=== PATIENT | female | born 1965 ===

== ENCOUNTER 2018-05-12 00:08 | Emergency (ER) | payer SELFPAY ==
[2018-05-12 00:31] VITALS: RESP 16; TEMP 98.2
--- NOTE | 2018-05-12 00:50 | C.PDOC ---
History Of Present Illness 52 year old female presents to the ED c/o itchiness. Patient reports getting radiation iodine for her thyroid. Patient able to speak in complete sentences. Patient denies fever, chills, nausea, vomit, SOB, facial swelling. Time Seen by Provider: 05/12/18 00:50 Chief Complaint (Nursing): Abnormal Skin Integrity History Per: Patient History/Exam Limitations: no limitations Onset/Duration Of Symptoms: Days Current Symptoms Are (Timing): Still Present Quality Of Symptoms: Itching Recent travel outside of the [place]: No Additional History Per: Patient Past Medical History Reviewed: Historical Data, Nursing Documentation, Vital Signs Vital Signs: Last Vital Signs Temp 98.2 F 05/12/18 00:20 Pulse 62 05/12/18 00:20 Resp 16 05/12/18 00:20 BP 109/64 05/12/18 00:20 Pulse Ox 100 05/12/18 00:20 - Medical History PMH: No Chronic Diseases Surgical History: Cholecystectomy (2 mos. ago) Family History: States: Unknown Family Hx - Social History Hx Alcohol Use: Yes Hx Substance Use: No - Immunization History Hx Tetanus Toxoid Vaccination: No Hx Influenza Vaccination: No Hx Pneumococcal Vaccination: No Review Of Systems Constitutional: Negative for: Fever, Chills ENT: Negative for: Mouth Swelling, Throat Swelling Respiratory: Negative for: Cough, Shortness of Breath Gastrointestinal: Negative for: Nausea, Vomiting Skin: Positive for: Rash Neurological: Negative for: Weakness, Numbness Physical Exam - Physical Exam Appears: Non-toxic, No Acute Distress Skin: Warm, Dry, Rash (few urticarial ) Head: Normacephalic Eye(s): bilateral: Normal Inspection Oral Mucosa: Moist Tongue: No Swelling Lips: No Swelling Throat: No Erythema, No Exudate Neck: Supple Chest: Symmetrical Cardiovascular: Rhythm Regular Respiratory: No Rales, No Rhonchi, No Wheezing Gastrointestinal/Abdominal: Soft, No Tenderness, No Guarding, No Rebound Extremity: Bilateral: Atraumatic, Normal Color And Temperature, Normal ROM Neurological/Psych: Oriented x3, Normal Speech, Normal Cognition Gait: Steady ED Course And Treatment O2 Sat by Pulse Oximetry: 100 (ON RA) Pulse Ox Interpretation: Normal Progress Note: Plan: - Benadryl 25 mg PO. - Pepcid 20 mg PO. - Prednisone 60 mg PO Reevaluation Time: 02:25 Reassessment Condition: Improved Disposition Counseled Patient/Family Regarding: Studies Performed, Diagnosis, Need For Followup, Rx Given - Disposition Referrals: Sandra Palmer APN [Advanced Practice Nurse] - Disposition: HOME/ ROUTINE Disposition Time: 00:50 Condition: FAIR Additional Instructions: Please reteurn if symptoms recur. May also use benadryl, pepcid and claritin Prescriptions: Prednisone [Deltasone] 20 mg PO DAILY #5 tablet Instructions: Skin Rash (DC) Forms: [employer] (Korean) - Clinical Impression Clinical Impression: Allergic reaction - Scribe Statement The provider has reviewed the documentation as recorded by the Scribe Ken Mcarthur All medical record entries made by the Scribe were at my direction and personally dictated by me. I have reviewed the chart and agree that the record accurately reflects my personal performance of the history, physical exam, medical decision making, and the department course for this patient. I have also personally directed, reviewed, and agree with the discharge instructions and disposition.
[2018-05-12 04:07] VITALS: BP 104/69; PULSE 66; O2SAT 98
== END 2018-05-12 03:55 | disposition home or self-care (01) ==
LOC: C.ER 00:08
DX: T78.40XA Allergy, unspecified, initial encounter (principal)

== ENCOUNTER 2018-08-20 11:57 | Emergency (ER) | payer OTHER ==
[2018-08-20 12:06] VITALS: BMI 25.0
[2018-08-20 12:14] VITALS: BP 109/70; PULSE 75; RESP 17; TEMP 98.2; O2SAT 99
[2018-08-20 12:45] LABS: HCG,QUALITATIVE URINE NEGATIVE (NEGATIVE)
[2018-08-20 12:48] LABS: SQUAMOUS EPITHIAL 4 /hpf (0-5); URINE BACTERIA FEW (<OCC); URINE BILIRUBIN NEGATIVE (NEGATIVE); URINE BLOOD NEGATIVE (NEGATIVE); URINE CLARITY Hazy (Clear); URINE COLOR Yellow (YELLOW); URINE GLUCOSE (UA) NORMAL (Normal); URINE LEUKOCYTE ESTERASE NEG Leu/uL (Negative); URINE PROTEIN NEGATIVE (NEGATIVE); URINE UROBILINOGEN NORMAL mg/dL (0.2-1.0)
[2018-08-20 12:50] LABS: BASO # 0.1 K/uL (0.0-0.2); BASO % 0.8 % (0.0-2.0); EOS # 0.1 K/uL (0.0-0.7); HEMOGLOBIN 13.8 g/dL (11.0-16.0); LYMPH # 1.8 K/uL (1.0-4.3); LYMPH % 18.6 % (20.0-40.0); MEAN CELL VOLUME 92.3 fL (81.0-99.0); MEAN CORPUSCULAR HEMOGLOBIN 31.1 pg (27.0-31.0); MEAN CORPUSCULAR HGB CONC 33.7 g/dL (33.0-37.0); MEAN PLATELET VOLUME 7.1 fL (7.2-11.7); MONO # 0.5 K/uL (0.0-0.8); MONO % 5.5 % (0.0-10.0); NEUT # 7.1 K/uL (1.8-7.0); NEUT % 74.1 % (50.0-75.0); RBC 4.43 Mil/uL (3.80-5.20); RED CELL DISTRIBUTION WIDTH 12.3 % (11.5-14.5); WHITE BLOOD COUNT 9.6 K/uL (4.8-10.8)
[2018-08-20] MEDS ORDERED: Sodium Chloride 0.9% 1,000 ML IV ONE (12:50)
--- NOTE | 2018-08-20 12:55 | C.PDOC ---
History Of Present Illness 52 y/o female comes in to ED complaining of left-sided abdominal pain since 2 days ago. Patient states pain is 8/10 and is on and off. States her is sick at home with similar symptoms. Patient also reports of some diarrhea but no vomiting, fever, chills, chest pain, SOB, or other symptoms. Patient has not seen her doctor yet. LMP was 5 years ago. Time Seen by Provider: 08/20/18 12:17 Chief Complaint (Nursing): Abdominal Pain History Per: Patient History/Exam Limitations: no limitations Onset/Duration Of Symptoms: Days Current Symptoms Are (Timing): Still Present Past Medical History Reviewed: Historical Data, Nursing Documentation, Vital Signs Vital Signs: Last Vital Signs Temp 98.2 F 08/20/18 12:07 Pulse 75 08/20/18 12:07 Resp 17 08/20/18 12:07 BP 109/70 08/20/18 12:07 Pulse Ox 99 08/20/18 12:07 - Medical History PMH: Hypothyroidism Surgical History: Cholecystectomy (2017) Family History: States: No Known Family Hx - Social History Hx Alcohol Use: No Hx Substance Use: No - Immunization History Hx Tetanus Toxoid Vaccination: No Hx Influenza Vaccination: Yes (2017) Hx Pneumococcal Vaccination: No Review Of Systems Except As Marked, All Systems Reviewed And Found Negative. Constitutional: Negative for: Fever, Chills Cardiovascular: Negative for: Chest Pain Respiratory: Negative for: Shortness of Breath Gastrointestinal: Positive for: Abdominal Pain (left-sided), Diarrhea. Negative for: Nausea, Vomiting Genitourinary: Negative for: Dysuria, Hematuria Skin: Negative for: Rash Physical Exam - Physical Exam Appears: Non-toxic, No Acute Distress Skin: Warm, Dry Head: Atraumatic, Normacephalic Eye(s): bilateral: Normal Inspection Oral Mucosa: Moist Neck: Supple Cardiovascular: Rhythm Regular, No Murmur Respiratory: Normal Breath Sounds, No Rales, No Rhonchi, No Wheezing Gastrointestinal/Abdominal: Tenderness (suprapubic tenderness, more on LLQ), No Guarding, No Rebound Back: No CVA Tenderness Extremity: Bilateral: Atraumatic, Normal Color And Temperature, Normal ROM ED Course And Treatment - Laboratory Results Result Diagrams: 08/20/18 12:45 08/20/18 12:45 Lab Results: Urine Color Yellow (YELLOW) 08/20/18 12:30 Urine Clarity Hazy (Clear) 08/20/18 12:30 Urine pH 6.0 (5.0-8.0) 08/20/18 12:30 Ur Specific Warren 1.014 (1.003-1.030) 08/20/18 12:30 Urine Protein Negative mg/dL (NEGATIVE) 08/20/18 12:30 Urine Glucose (UA) Normal mg/dL (Normal) 08/20/18 12:30 Urine Ketones Negative mg/dL (NEGATIVE) 08/20/18 12:30 Urine Blood Negative (NEGATIVE) 08/20/18 12:30 Urine Nitrate Negative (NEGATIVE) 08/20/18 12:30 Urine Bilirubin Negative (NEGATIVE) 08/20/18 12:30 Urine Urobilinogen Normal mg/dL (0.2-1.0) 08/20/18 12:30 Ur Leukocyte Esterase Neg Maggie/uL (Negative) 08/20/18 12:30 Urine WBC (Auto) < 1 /hpf (0-5) 08/20/18 12:30 Urine RBC (Auto) 1 /hpf (0-3) 08/20/18 12:30 Ur Squamous Epith Cells 4 /hpf (0-5) 08/20/18 12:30 Urine Bacteria Few (<OCC) H 08/20/18 12:30 Urine HCG, Qual Negative (NEGATIVE) 08/20/18 12:30 Urine HCG, Qual Negative (NEGATIVE) 08/20/18 12:30 O2 Sat by Pulse Oximetry: 99 (RA) Pulse Ox Interpretation: Normal Medical Decision Making Medical Decision Making: Plan: --Bloodwork --IV fluids 1L --UA Disposition Counseled Patient/Family Regarding: Studies Performed, Diagnosis, Need For Followup - Disposition Referrals: [facility] [Outside] [facility] [Outside] Disposition: HOME/ ROUTINE Disposition Time: 13:45 Condition: STABLE Prescriptions: Naproxen [Naprosyn] 500 mg PO BID PRN #30 tablet PRN Reason: Pain, Moderate (4-7) Sulfamethoxazole/Trimethoprim [Bactrim DS 800 mg-160 mg] 1 tab PO BID #14 tab Instructions: Urinary Tract Infection, Adult (DC), Acute Abdomen (Belly Pain), Adult (DC) Forms: Gen Discharge Inst Moroccan, [employer] (Moroccan) Print Language: CANADIAN - POA Present On Arrival: None - Clinical Impression Clinical Impression: UTI (urinary tract infection), Abdominal pain - Scribe Statement The provider has reviewed the documentation as recorded by the Albertoibbruno Spears Provider Attestation: All medical record entries made by the Albertoibe were at my direction and personally dictated by me. I have reviewed the chart and agree that the record accurately reflects my personal performance of the history, physical exam, medical decision making, and the department course for this patient. I have also personally directed, reviewed, and agree with the discharge instructions and disposition.
[2018-08-20] MEDS ORDERED: Sodium Chloride 0.9% 1,000 ML ONE (12:56)
[2018-08-20 13:01] LABS: BLOOD UREA NITROGEN 16 mg/dL (7-17); CALCIUM 9.1 mg/dl (8.6-10.4); GFR NON-AFRICAN AMERICAN > 60
[2018-08-20] MEDS ORDERED: Naproxen 550 mg Tab PO STA (13:48)
[2018-08-20] MEDS ORDERED: Naproxen 550 mg Tab PO ONE (14:01)
== END 2018-08-20 14:11 | disposition home or self-care (01) ==
LOC: C.ER 11:57
DX: N39.0 Urinary tract infection, site not specified (principal); R10.32 Left lower quadrant pain
CPT/HCPCS: 80048; 81001; 84703; 85025; 96360; 99284; J7030

== ENCOUNTER 2018-09-02 10:04 | Emergency (ER) | payer OTHER ==
[2018-09-02 10:05] VITALS: BMI 25.0
[2018-09-02 10:16] VITALS: PULSE 75; O2SAT 98
[2018-09-02] MEDS ORDERED: Sodium Chloride 0.9% 1,000 ML IV ONE (10:42)
--- NOTE | 2018-09-02 10:59 | C.PDOC ---
History Of Present Illness 52 y/o female presents to the ED complaining of abdominal pain. Associated with diarrhea for the past 2 months. Patient reports having around 5 episodes of watery non-bloody diarrhea per day. She was seen here on 08/20 for similar com plaint, and discharged home with antibiotics for a UTI. Patient denies any dysuria, hematuria, urinary frequency, fevers, chills, nausea, or vomiting. States she needs a CT scan. Time Seen by Provider: 09/02/18 10:28 Chief Complaint (Nursing): Abdominal Pain History Per: Patient History/Exam Limitations: no limitations Onset/Duration Of Symptoms: Days Current Symptoms Are (Timing): Still Present Quality Of Discomfort: "Pain" Associated Symptoms: Diarrhea Alleviating Factors: None Last Bowel Movement: Today Past Medical History Reviewed: Historical Data, Nursing Documentation, Vital Signs Vital Signs: Last Vital Signs Temp 98.2 F 09/02/18 10:15 Pulse 75 09/02/18 10:15 Resp 18 09/02/18 10:15 BP 101/64 09/02/18 10:15 Pulse Ox 98 09/02/18 10:15 - Medical History PMH: Hypothyroidism Surgical History: Cholecystectomy (2017) Family History: States: No Known Family Hx - Social History Hx Alcohol Use: No Hx Substance Use: No - Immunization History Hx Tetanus Toxoid Vaccination: No Hx Influenza Vaccination: Yes (2017) Hx Pneumococcal Vaccination: No Review Of Systems Constitutional: Negative for: Fever, Chills Cardiovascular: Negative for: Light Headedness Respiratory: Negative for: Shortness of Breath Gastrointestinal: Positive for: Abdominal Pain, Diarrhea. Negative for: Nausea, Vomiting, Melena, Hematochezia Genitourinary: Negative for: Dysuria, Frequency, Incontinence Neurological: Negative for: Weakness, Dizziness Physical Exam - Physical Exam Appears: Non-toxic, No Acute Distress Skin: Warm, Dry Head: Atraumatic, Normacephalic Eye(s): bilateral: Normal Inspection, PERRL, EOMI Oral Mucosa: Moist Neck: Normal ROM Chest: Symmetrical Cardiovascular: Rhythm Regular, No Murmur Respiratory: Normal Breath Sounds, No Accessory Muscle Use Gastrointestinal/Abdominal: Soft, No Tenderness, No Distention, No Guarding, No Rebound Back: Normal Inspection, No CVA Tenderness Extremity: Bilateral: Atraumatic, Normal Color And Temperature, Normal ROM Neurological/Psych: Oriented x3, Normal Speech ED Course And Treatment - Laboratory Results Result Diagrams: 09/02/18 11:43 09/02/18 11:43 Lab Interpretation: No Acute Changes O2 Sat by Pulse Oximetry: 98 (RA) Pulse Ox Interpretation: Normal - CT Scan/US No standard instances Other Rad Studies (CT/US): Read By Radiologist, Radiology Report Reviewed CT/US Interpretation: HISTORY: Pain. COMPARISON: None available. TECHNIQUE: Contiguous axial images of the abdomen and pelvis. No oral or IV contrast administered. Coronal and Sagittal reformats generated and reviewed. Radiation dose: Total exam DLP = 368.67 mGy-cm. This CT exam was performed using one or more of the following dose reduction techniques: Automated exposure control, adjustment of the mA and/or kV according to patient size, and/or use of iterative reconstruction technique. FINDINGS: There is limited evaluation of the solid organs without the administration of IV contrast. LOWER THORAX: No visible consolidation, pleural effusion, or pneumothorax. LIVER: Unremarkable unenhanced appearance. GALLBLADDER AND BILE DUCTS: Cholecystectomy. PANCREAS: Unremarkable unenhanced appearance. SPLEEN: Unremarkable unenhanced appearance. ADRENALS: Unremarkable unenhanced appearance. KIDNEYS AND URETERS: No hydronephrosis or obstructing renal calculus. BLADDER: The urinary bladder appears unremarkable. REPRODUCTIVE: Uterus is present. APPENDIX: The appendix is not identified. No secondary signs of acute appendicitis. BOWEL: The stomach is nondistended. Lack of oral contrast limits evaluation for bowel pathology. The bowel loops appear within normal limits of caliber without evidence of intestinal obstruction. PERITONEUM: No significant free fluid. No definite free air. LYMPH NODES: No bulky lymphadenopathy identified. VASCULATURE: No significant atherosclerotic calcifications identified. No aortic aneurysm. BONES: Mild degenerative changes. OTHER FINDINGS: None. IMPRESSION: No acute findings identified. See above. Progress Note: Treated with IVF NSS and bentyl IM. On re-evaluation abdomen soft on no distress Reassessment Condition: Improved Medical Decision Making Medical Decision Making: Impression: Abdominal Pain, Diarrhea Plan: --Blood work --Urinalysis --Stool analysis --CT abdomen/pelvis --NS IV fluids --20 mg IM Bentyl --Reassess after treatment Disposition Counseled Patient/Family Regarding: Studies Performed, Diagnosis, Need For Followup - Disposition Referrals: [facility] [Outside] [facility] [Outside] Disposition: HOME/ ROUTINE Disposition Time: 13:00 Condition: IMPROVED Instructions: Diarrhea in Adolescents and Adults, [place] Diet Forms: [employer] (Georgian) - POA Present On Arrival: None - Clinical Impression Clinical Impression: Diarrhea - PA / GALLERY HOST / Resident Statement MD/DO has reviewed & agrees with the documentation as recorded. - Scribe Statement The provider has reviewed the documentation as recorded by the Scribe Jumana Canseco All medical record entries made by the Scribe were at my direction and personally dictated by me. I have reviewed the chart and agree that the record accurately reflects my personal performance of the history, physical exam, medical decision making, and the department course for this patient. I have also personally directed, reviewed, and agree with the discharge instructions and disposition.
[2018-09-02] MEDS ORDERED: Sodium Chloride 0.9% 1,000 ML ONE (11:04)
[2018-09-02 11:50] LABS: HCG,QUALITATIVE URINE NEGATIVE (NEGATIVE)
[2018-09-02 11:55] LABS: BASO # 0.1 K/uL (0.0-0.2); BASO % 0.6 % (0.0-2.0); EOS # 0.1 K/uL (0.0-0.7); EOS % 1.1 % (0.0-4.0); LYMPH # 1.8 K/uL (1.0-4.3); LYMPH % 20.7 % (20.0-40.0); MEAN CELL VOLUME 91.3 fL (81.0-99.0); MEAN CORPUSCULAR HEMOGLOBIN 31.5 pg (27.0-31.0); MEAN CORPUSCULAR HGB CONC 34.5 g/dL (33.0-37.0); MEAN PLATELET VOLUME 6.9 fL (7.2-11.7); MONO # 0.6 K/uL (0.0-0.8); NEUT # 6.1 K/uL (1.8-7.0); NEUT % 70.6 % (50.0-75.0); NRBC % 0.1 % (0.0-2.0); RBC 4.11 Mil/uL (3.80-5.20); RED CELL DISTRIBUTION WIDTH 12.6 % (11.5-14.5); WHITE BLOOD COUNT 8.6 K/uL (4.8-10.8)
[2018-09-02 12:14] LABS: ALB/GLOB RATIO 1.8 (1.0-2.1); ALBUMIN 4.1 g/dL (3.5-5.0); ALT/SGPT 7 U/L (9-52); AST/SGOT 25 U/L (14-36); BLOOD UREA NITROGEN 13 mg/dL (7-17); GFR NON-AFRICAN AMERICAN > 60; LIPASE 202 U/L (23-300)
[2018-09-02 12:15] LABS: SQUAMOUS EPITHIAL 2 /hpf (0-5); URINE BILIRUBIN NEGATIVE (NEGATIVE); URINE BLOOD NEGATIVE (NEGATIVE); URINE CALCIUM OXALATE CRYSTALS MOD /hpf (<OCC); URINE CLARITY Hazy (Clear); URINE COLOR Yellow (YELLOW); URINE GLUCOSE (UA) NORMAL (Normal); URINE LEUKOCYTE ESTERASE NEG Leu/uL (Negative); URINE PROTEIN NEGATIVE (NEGATIVE); URINE UROBILINOGEN NORMAL mg/dL (0.2-1.0)
--- NOTE | 2018-09-02 12:38 | CT ---
PROCEDURE: CT Abdomen and Pelvis without Oral or IV contrast. HISTORY: Pain COMPARISON: None available TECHNIQUE: Contiguous axial images of the abdomen and pelvis. No oral or IV contrast administered. Coronal and Sagittal reformats generated and reviewed. Radiation dose: Total exam DLP = 368.67 mGy-cm. This CT exam was performed using one or more of the following dose reduction techniques: Automated exposure control, adjustment of the mA and/or kV according to patient size, and/or use of iterative reconstruction technique. FINDINGS: There is limited evaluation of the solid organs without the administration of IV contrast. LOWER THORAX: No visible consolidation, pleural effusion, or pneumothorax. LIVER: Unremarkable unenhanced appearance. GALLBLADDER AND BILE DUCTS: Cholecystectomy. PANCREAS: Unremarkable unenhanced appearance. SPLEEN: Unremarkable unenhanced appearance. ADRENALS: Unremarkable unenhanced appearance. KIDNEYS AND URETERS: No hydronephrosis or obstructing renal calculus. BLADDER: The urinary bladder appears unremarkable. REPRODUCTIVE: Uterus is present. APPENDIX: The appendix is not identified. No secondary signs of acute appendicitis. BOWEL: The stomach is nondistended. Lack of oral contrast limits evaluation for bowel pathology. The bowel loops appear within normal limits of caliber without evidence of intestinal obstruction. PERITONEUM: No significant free fluid. No definite free air. LYMPH NODES: No bulky lymphadenopathy identified. VASCULATURE: No significant atherosclerotic calcifications identified. No aortic aneurysm. BONES: Mild degenerative changes. OTHER FINDINGS: None. IMPRESSION: No acute findings identified. See above.
[2018-09-02 13:12] VITALS: BP 110/70; RESP 20; TEMP 98.3
== END 2018-09-02 13:11 | disposition home or self-care (01) ==
LOC: C.ER 10:04
DX: R19.7 Diarrhea, unspecified (principal); E03.9 Hypothyroidism, unspecified
CPT/HCPCS: 74176; 80053; 81001; 83690; 84703; 85025; 96360; 96372; 99285; J0500; J7030